=== PATIENT | male | born 1940 | race Caucasian/White ===

== ENCOUNTER 2017-07-30 05:23 | Observation (INO) | payer OTHER ==
[2017-07-30] VITALS (9 sets, daily range): BP systolic 132–148; BP diastolic 44–65
[~2017-07-30] VITALS: Ht 177.8 cm; Wt 86.6 kg
--- NOTE | ~2017-07-30 | S ---
[facility] [place] [address] SURGICAL PATH RPT PROCEDURE Name: BRENDA HAHN Room #: 416-P [facility] Lino Bermeo#: [id number] Admission: 07/30/17 Date of : 36 Discharge: 07/30/17 Report #: [id number] Path Case #: [id number] PATHOLOGY REPORT COLLECTION DATE: 07/30/2017 RECEIVED DATE: 07/30/2017 SUBMITTING PHYS: Dr. Griffin Anderson, DO OTHER PHYS: Dr. Campbell Guzman SPECIMEN(S) RECEIVED: A.Gallbladder * * * * * * * * * * * * FINAL DIAGNOSIS: Gallbladder, cholecystectomy: - Mild chronic cholecystitis. - Cholelithiasis. PATHOLOGIST: Nguyen Mcmahon M.D. REPORT ELECTRONICALLY SIGNED BY: Nguyen Mcmahon M.D. DATE/TIME: 08/02/2017 14:48 * * * * * * * * * * * * GROSS PATHOLOGY: Received in formalin labeled "Brenda Hahn gallbladder," is an 8.4 x 3.1 x 1.3 cm, previously opened gallbladder with dusky pink-talley serosal surfaces. Opening the gallbladder reveals a velvety, pink-malone to bile-stained mucosa and an average wall thickness of 0.1 cm. Multiple small black calculi are present and no masses are noted grossly. Injection Wax Molder sections from the body and fundus are submitted along with the proximal margin in cassette A1. (CAA; 07/30/2017) CLINICAL HISTORY: Gallbladder disease INITIAL CPT CODE(S): A; 00813 Professional services performed by [facility] at [facility] [address], [place] [address] Technical services performed by [facility] at [address] [place] [id number]. [facility] [address] [place] [address] SURGICAL PATH RPT PROCEDURE Name: BRENDA HAHN Room #: 416-P [facility] Bermeo#: [id number] Admission: 07/30/17 Date of : 36 Discharge: 07/30/17 Report #: [id number] Path Case #: [id number] [facility] [address] [address] PHONE: [phone] DIRECTOR: John Lenz M.D. * * * END OF REPORT * * *
[~2017-07-30 05:23] MED LIST: AMITRIPTYLINE H25 M2 PO; ASPIRIN325 PO; ATORVASTATIN CA40 MG PO; BYSTOLIC 5 MG5 M1 PO; HYDRALAZINE 5050 MG PO; LASIX 20 MG TAB20 MG PO; OMEPRAZOLE 20 M20 MG PO; TRAMADOL 50 MG50 MG PO; VITAMIN C500 M2 PO; XANAX 0.5 MG0.5 MG PO
[2017-07-30 06:43] LABS: HEMATOCRIT 34.2 % (42.0-52.0); HEMOGLOBIN 10.9 gm/dL (14.0-18.0)
[2017-07-30 06:49] LABS: CALCIUM 8.7 mg/dL (8.5-10.1); CREATININE 0.8 mg/dL (0.7-1.3); POTASSIUM 3.9 mmol/L (3.5-5.1)
[2017-07-30] MEDS ORDERED: ULTRACET TABLET1 TAB PO (15:10)
[2017-07-30] MEDS ORDERED: ZOFRAN4 MG PO (15:10)
== END 2017-07-30 16:21 | disposition home or self-care (01) ==
LOC: TBA 05:23 → OR 05:23 → 4N 09:11 → OR 10:37 → 4N 16:21
PROVIDERS: Surgery
DX: K80.10 Calculus of gallbladder with chronic cholecystitis without obstruction (principal); E78.5 Hyperlipidemia, unspecified; M19.90 Unspecified osteoarthritis, unspecified site; I10 Essential (primary) hypertension; K21.9 Gastro-esophageal reflux disease without esophagitis; E78.00 Pure hypercholesterolemia, unspecified; Z87.891 Personal history of nicotine dependence
CPT/HCPCS: 50010; 50101; 50249; 50411; 50555; 50558; 50900; 51489; 51975; 52265; 52287; 53307; 53310; 54022; 54118; 55245; 55317; 56462; 56525; 56526; 56639; 62110; 62900; 64031; 70005

== ENCOUNTER → 2020-10-08 | Outpatient (CLI) | payer OTHER ==
[~2020-10-08] MED LIST changes: +ULTRACET TABLET1 TAB PO; +ZOFRAN4 MG PO
== END ==
LOC: SJCVCIMAG 07:45
PROVIDERS: ATTEND Internal Medicine Cardiovascular Disease
DX: I08.0 Rheumatic disorders of both mitral and aortic valves (principal); R00.1 Bradycardia, unspecified; I25.10 Atherosclerotic heart disease of native coronary artery without angina pectoris; E78.5 Hyperlipidemia, unspecified; I10 Essential (primary) hypertension; I73.9 Peripheral vascular disease, unspecified; Z79.899 Other long term (current) drug therapy; Z79.891 Long term (current) use of opiate analgesic

== ENCOUNTER → 2020-12-11 | Outpatient (CLI) | payer OTHER | LOC: SJCVC 13:54 | PROVIDERS: ATTEND Internal Medicine Cardiovascular Disease | DX: R94.31 Abnormal electrocardiogram [ECG] [EKG] (principal); I48.91 Unspecified atrial fibrillation; I35.0 Nonrheumatic aortic (valve) stenosis; I10 Essential (primary) hypertension; E78.00 Pure hypercholesterolemia, unspecified; I25.10 Atherosclerotic heart disease of native coronary artery without angina pectoris; I65.23 Occlusion and stenosis of bilateral carotid arteries; I73.9 Peripheral vascular disease, unspecified; I77.811 Abdominal aortic ectasia; E78.5 Hyperlipidemia, unspecified; M19.90 Unspecified osteoarthritis, unspecified site; F17.210 Nicotine dependence, cigarettes, uncomplicated; Z90.49 Acquired absence of other specified parts of digestive tract; Z95.828 Presence of other vascular implants and grafts; Z79.82 Long term (current) use of aspirin; Z79.899 Other long term (current) drug therapy; Z82.49 Family history of ischemic heart disease and other diseases of the circulatory system ==

== ENCOUNTER → 2021-05-06 | Outpatient (CLI) | payer OTHER | LOC: LAB 10:26 | PROVIDERS: ATTEND Internal Medicine | DX: R19.09 Other intra-abdominal and pelvic swelling, mass and lump (principal) ==

== ENCOUNTER → 2021-05-20 | Outpatient (CLI) | payer OTHER | LOC: SJCVCIMAG 13:11 | PROVIDERS: ATTEND Internal Medicine Cardiovascular Disease | DX: I70.203 Unspecified atherosclerosis of native arteries of extremities, bilateral legs (principal); I77.9 Disorder of arteries and arterioles, unspecified; I25.10 Atherosclerotic heart disease of native coronary artery without angina pectoris; I35.0 Nonrheumatic aortic (valve) stenosis; E78.00 Pure hypercholesterolemia, unspecified; I71.4 Abdominal aortic aneurysm, without rupture; F17.210 Nicotine dependence, cigarettes, uncomplicated; F12.10 Cannabis abuse, uncomplicated; E78.5 Hyperlipidemia, unspecified; Z88.8 Allergy status to other drugs, medicaments and biological substances; Z79.82 Long term (current) use of aspirin; Z79.899 Other long term (current) drug therapy; Z95.828 Presence of other vascular implants and grafts; Z88.5 Allergy status to narcotic agent ==

== ENCOUNTER → 2021-07-04 | Outpatient (CLI) | payer OTHER ==
[~2021-07-04] VITALS: Ht 177.8 cm; Wt 72.6 kg
[~2021-07-04] MED LIST changes: +NEURONTIN100 MG PO; +PLAVIX 75 MG TA75 MG PO
[2021-07-04 08:55] VITALS: BP 152/54
[2021-07-04 09:48] LABS: CALCIUM 7.4 mg/dL (8.5-10.1); CREATININE 0.6 mg/dL (0.7-1.3); POTASSIUM 3.7 mmol/L (3.5-5.1)
[2021-07-04 10:04] LABS: HEMATOCRIT 29.2 % (42.0-52.0); HEMOGLOBIN 9.2 gm/dL (14.0-18.0); MCH 25.9 pg (26.0-34.0); MCHC 31.4 g/dL (28.0-37.0); MCV 82.4 fL (80.0-100.0); RBC 3.54 mil/uL (4.50-6.00); RDW 17.9 % (10.5-14.5); WBC 5.3 thou/uL (4.0-11.0)
== END | disposition home or self-care (01) ==
LOC: CATH 07:40
PROVIDERS: ATTEND Nuclear Medicine Nuclear Cardiology
DX: I70.212 Atherosclerosis of native arteries of extremities with intermittent claudication, left leg (principal); I70.1 Atherosclerosis of renal artery; M79.605 Pain in left leg; M79.604 Pain in right leg; I10 Essential (primary) hypertension; I25.10 Atherosclerotic heart disease of native coronary artery without angina pectoris; E78.00 Pure hypercholesterolemia, unspecified; K21.9 Gastro-esophageal reflux disease without esophagitis; Z98.890 Other specified postprocedural states; Z79.899 Other long term (current) drug therapy; Z90.49 Acquired absence of other specified parts of digestive tract; Z98.41 Cataract extraction status, right eye; Z98.42 Cataract extraction status, left eye; Z88.8 Allergy status to other drugs, medicaments and biological substances